=== PATIENT | female | born 1985 | race Two or more races ===

== ENCOUNTER 2021-07-21 09:59 | Emergency (ER) | payer OTHER ==
[~2021-07-21] VITALS: Ht 160 cm; Wt 68.0 kg
[2021-07-21 10:03] VITALS: BP 107/69
== END 2021-07-21 14:19 | disposition left against medical advice (07) ==
LOC: ER 09:59
DX: J02.9 Acute pharyngitis, unspecified (principal); Z53.21 Procedure and treatment not carried out due to patient leaving prior to being seen by health care provider